=== PATIENT | female | born 1990 | race Two or more races ===

== ENCOUNTER 2019-07-31 20:09 | Outpatient (CLI) | payer MEDICAID, OTHER ==
[~2019-07-31] VITALS: Ht 154.9 cm; Wt 95.7 kg
[2019-07-31 20:44] VITALS: BP 114/65
== END 2019-07-31 21:19 | disposition home or self-care (01) ==
LOC: LDOP 20:09
PROVIDERS: ATTEND Student in an Organized Health Care Education/Training Program
DX: O42.92 Full-term premature rupture of membranes, unspecified as to length of time between rupture and onset of labor (principal); Z3A.37 37 weeks gestation of pregnancy
CPT/HCPCS: 59025; 84112; 99201; G0463

== ENCOUNTER 2019-08-05 16:33 | Outpatient (CLI) | payer OTHER ==
[~2019-08-05] VITALS: Ht 154.9 cm; Wt 95.9 kg
[2019-08-05 16:43] VITALS: BP 120/66
[2019-08-05 17:55] LABS: MICROSCOPIC INDICATED
== END 2019-08-05 18:19 | disposition home or self-care (01) ==
LOC: LDOP 16:33
PROVIDERS: ATTEND Student in an Organized Health Care Education/Training Program
DX: O26.893 Other specified pregnancy related conditions, third trimester (principal); Z3A.37 37 weeks gestation of pregnancy; I87.8 Other specified disorders of veins
CPT/HCPCS: 59025; 81001; 87086; 99211; G0463

== ENCOUNTER 2019-08-17 05:58 | Inpatient (IN) | payer OTHER ==
[~2019-08-17] VITALS: Ht 154.9 cm; Wt 98.0 kg
[2019-08-17] MEDS ORDERED: LACTATED RINGERS 1,000 ML IV SCH ×2 (06:14→12:41)
[2019-08-17] MEDS ORDERED: OXYTOCIN 30U/ 0.9% NaCL 500ML 500 ML IV ONE (06:14)
[2019-08-17] MEDS ORDERED: D5%-LACTATED RINGERS 1,000 ML IV SCH (06:14)
[2019-08-17] MEDS ORDERED: OXYTOCIN 30U/ 0.9% NaCL 500ML 500 ML ONE (06:26)
[2019-08-17] MEDS ORDERED: MISOPROSTOL 200 MCG TABLET ONE (06:26)
[2019-08-17] MEDS ORDERED: NEWBORN KIT ONE (06:26)
[2019-08-17] MEDS ORDERED: LIDOCAINE 1%, 20ML ONE (06:26)
[2019-08-17] MEDS ORDERED: TERBUTALINE 1 MG/ML, 1ML SQ PRN (06:30)
[2019-08-17] MEDS ORDERED: ALUMINUM/MAG/SIMETHICONE 30 ML UDC PO PRN (06:30)
[2019-08-17] MEDS ORDERED: METOCLOPRAMIDE 5 MG/ML, 2ML IVPush PRN (06:30)
[2019-08-17] MEDS ORDERED: FENTANYL PF 100 MCG/2ML IV PRN (06:30)
[2019-08-17] MEDS ORDERED: SODIUM CITRATE/CITRIC ACID 30 ML UDC PO PRN (06:30)
[2019-08-17] MEDS ORDERED: SODIUM CHLORIDE FLUSH 10ML SYR IVF PRN (06:30)
[2019-08-17] MEDS ORDERED: CALCIUM CARBONATE 500 MG TAB.CHEW PO PRN (06:30)
[2019-08-17] MEDS ORDERED: ONDANSETRON 2MG/ML, 2ML IVPush PRN (06:30)
[2019-08-17] MEDS ORDERED: TERBUTALINE 1 MG/ML, 1ML IVPush PRN (06:30)
[2019-08-17 06:53] LABS: BASOPHILS # (AUTO) 0.03 x10^3/uL (0-0.1); BASOPHILS % (AUTO) 0 % (0-1); EOSINOPHILS # (AUTO) 0.08 x10^3/uL (0-0.4); EOSINOPHILS % (AUTO) 1 % (1-7); LYMPHOCYTES # (AUTO) 1.45 x10^3/uL (1-3.4); LYMPHOCYTES % (AUTO) 15 % (22-44); MD NO; MEAN CORPUSCULAR HEMOGLOBIN 33.8 pg (27.0-34.8); MEAN CORPUSCULAR HGB CONC 33.9 g/dL (32.4-35.8); MEAN CORPUSCULAR VOLUME 99.6 fL (80-100); MEAN PLATELET VOLUME 9.1 fL (7.4-10.4); MONOCYTES # (AUTO) 0.49 x10^3/uL (0.2-0.8); MONOCYTES % (AUTO) 5 % (2-9); NEUTROPHILS # (AUTO) 7.89 x10^3/uL (1.8-6.8); NEUTROPHILS % (AUTO) 79 % (42-75); PLATELET COUNT 188 x10^3/uL (130-400); RED BLOOD COUNT 4.34 x10^6/uL (3.82-5.3); RED CELL DISTRIBUTION WIDTH 14.1 % (9.6-15.2)
[2019-08-17 07:11] VITALS: BP 120/58
[2019-08-17] MEDS ORDERED: FENTANYL/BUPIV./NS/PF 250 ML EPIDCONT SCH ×2 (08:13→12:41)
[2019-08-17] MEDS ORDERED: OXYTOCIN 30U/ 0.9% NaCL 500ML 500 ML IV PRN (09:11)
[2019-08-17] MEDS ORDERED: FENTANYL PF 100 MCG/2ML ONE ×2 (11:18→12:09)
[2019-08-17] MEDS: FENTANYL PF 100 MCG/2ML IVPush PRN ×2 (11:19→12:10)
[2019-08-17] MEDS ORDERED: FENTANYL/BUPIV./NS/PF 250 ML EPIDCONT ONE (12:21)
[2019-08-17] MEDS ORDERED: BUPIVACAINE/PF 0.25% ONE (12:44)
[2019-08-17] MEDS ORDERED: LACTATED RINGERS 1,000 ML IVBOLUS PRN (13:00)
[2019-08-17] MEDS ORDERED: EPHEDRINE 50 MG/ML, 1ML IVPush PRN (13:00)
[2019-08-17] MEDS ORDERED: NALOXONE 0.4 MG/ML, 1ML IVPush PRN (13:00)
[2019-08-17] MEDS ORDERED: METHYLERGONOVINE 0.2 MG/ML IM PRN (14:30)
[2019-08-17] MEDS ORDERED: MISOPROSTOL 200 MCG TABLET PR PRN (14:30)
[2019-08-17] MEDS ORDERED: ONDANSETRON 2MG/ML, 2ML IV PRN (14:30)
[2019-08-17] MEDS ORDERED: ACETAMINOPHEN 325 MG TABLET PO PRN ×2 (14:30)
[2019-08-17] MEDS ORDERED: BISACODYL 10 MG SUPP PR PRN (14:30)
[2019-08-17] MEDS ORDERED: CARBOPROST TROMETHAMINE 250 MCG/ML, 1ML IM PRN (14:30)
[2019-08-17] MEDS ORDERED: METOCLOPRAMIDE 5 MG/ML, 2ML IV PRN (14:30)
[2019-08-17] MEDS ORDERED: OXYcodone/APAP 5/325MG TABLET PO PRN ×2 (14:30)
[2019-08-17] MEDS ORDERED: SIMETHICONE 80 MG CHEW TAB PO PRN (14:30)
[2019-08-17] MEDS ORDERED: GLYCERIN ADULT SUPP PR PRN (14:30)
[2019-08-17] MEDS: OXYTOCIN 30U/ 0.9% NaCL 500ML 500 ML IV SCH (15:55)
[2019-08-17 17:00] VITALS: BP 100/65
[2019-08-17 19:30] VITALS: BP 102/65
[2019-08-17] MEDS: DOCUSATE 100 MG CAPSULE PO PRN (20:19)
[2019-08-17] MEDS: IBUPROFEN 600 MG TABLET PO PRN (20:19)
[2019-08-17 22:34] LABS: BASOPHILS # (AUTO) 0.03 x10^3/uL (0-0.1); BASOPHILS % (AUTO) 0 % (0-1); EOSINOPHILS # (AUTO) 0.02 x10^3/uL (0-0.4); EOSINOPHILS % (AUTO) 0 % (1-7); LYMPHOCYTES # (AUTO) 1.12 x10^3/uL (1-3.4); LYMPHOCYTES % (AUTO) 12 % (22-44); MD NO; MEAN CORPUSCULAR HEMOGLOBIN 33.4 pg (27.0-34.8); MEAN CORPUSCULAR HGB CONC 33.5 g/dL (32.4-35.8); MEAN CORPUSCULAR VOLUME 99.9 fL (80-100); MONOCYTES # (AUTO) 0.52 x10^3/uL (0.2-0.8); MONOCYTES % (AUTO) 5 % (2-9); NEUTROPHILS # (AUTO) 8.01 x10^3/uL (1.8-6.8); NEUTROPHILS % (AUTO) 83 % (42-75); PLATELET COUNT 184 x10^3/uL (130-400); RED BLOOD COUNT 4.16 x10^6/uL (3.82-5.3); RED CELL DISTRIBUTION WIDTH 14.1 % (9.6-15.2)
[2019-08-18] VITALS: BP 107/70
[2019-08-18] MEDS: OXYTOCIN 30U/ 0.9% NaCL 500ML 500 ML IV SCH ×2 (00:20→10:20)
[2019-08-18] MEDS: IBUPROFEN 600 MG TABLET PO PRN ×2 (02:15→09:10)
[2019-08-18 04:30] VITALS: BP 100/63
[2019-08-18 07:50] VITALS: BP 104/63
[2019-08-18] MEDS ORDERED: PRENATAL VIT/IRON/FA 1 EACH TABLET PO SCH (09:00)
[2019-08-18] MEDS: DOCUSATE 100 MG CAPSULE PO PRN (09:10)
[2019-08-18] MEDS ORDERED: IBUP-1222 PO (13:19)
== END 2019-08-18 14:55 | disposition home or self-care (01) | DRG 807 ==
LOC: LDOP 05:58 → LDIP 06:28 → 2NW 16:04
PROVIDERS: ADMIT Student in an Organized Health Care Education/Training Program; ATTEND Student in an Organized Health Care Education/Training Program
PROC: 10E0XZZ Delivery of Products of Conception, External Approach (ICD-10-PCS; principal; 2019-08-17)
PROC: 3E0R3BZ Introduction of Anesthetic Agent into Spinal Canal, Percutaneous Approach (ICD-10-PCS; 2019-08-17)
PROC: 00HU33Z Insertion of Infusion Device into Spinal Canal, Percutaneous Approach (ICD-10-PCS; 2019-08-17)
DX: O80 Encounter for full-term uncomplicated delivery (principal); Z37.0 Single live birth; Z3A.40 40 weeks gestation of pregnancy; Z80.3 Family history of malignant neoplasm of breast
CPT/HCPCS: 36415; 85025; 86592; 86850; 86900; G0378; J2405; J3010; J3490; J2590